=== PATIENT | male | born 1975 | race Two or more races ===

== ENCOUNTER 2025-02-14 16:00 | Emergency (ER) | payer OTHER ==
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
[2025-02-14 18:44] VITALS: RESP 16
[2025-02-14] MEDS ORDERED: ACETAMINOPHEN TAB 325 MG TAB PO STA (19:11)
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
[2025-02-14] MEDS: ACETAMINOPHEN TAB 500 MG TAB PO STA (19:24)
[2025-02-14 19:31] VITALS: BP 127/88; PULSE 96; TEMP 98.6
== END 2025-02-14 20:35 | disposition home or self-care (01) ==
LOC: EC 16:00
DX: S09.90XA Unspecified injury of head, initial encounter (principal); G40.909 Epilepsy, unspecified, not intractable, without status epilepticus; Z87.891 Personal history of nicotine dependence; Y04.0XXA Assault by unarmed brawl or fight, initial encounter
CPT/HCPCS: 70450; 99284